=== PATIENT | female | born 1965 | race Caucasian/White ===

== ENCOUNTER 2020-06-26 14:10 | Emergency (ER) | payer MEDICAID ==
[~2020-06-26] VITALS: Ht 157.5 cm; Wt 87.5 kg
[~2020-06-26 14:10] MED LIST: COZAAR25 M1 PO; FORTAMET500 M1 PO; LANTI SQ; PYRIDIUM100 MG PO
[2020-06-26 14:12] VITALS: Ht 157.5 cm; Wt 87.5 kg
[2020-06-26 15:11] LABS: BASOPHIL % 0.4 % (0.2-1.3); PLATELET COUNT 328 x10^3mcL (179-408); RED CELL DISTRIBUTION WIDTH 14.5 % (12.3-17.7)
[2020-06-26 15:52] LABS: CALCIUM 8.7 mg/dL (8.5-10.1); CARBON DIOXIDE 24.4 mmol/L (21-32); CHLORIDE SERUM 100 mmol/L (98-107); CREATININE SERUM 0.9 mg/dL (0.6-1.0); GFR1 > 60 mL/min; GLUCOSE SERUM 389 mg/dL (74-106); POTASSIUM SERUM 4.3 mmol/L (3.5-5.1); SODIUM SERUM 133 mmol/L (136-145)
[2020-06-26 15:58] LABS: ALBUMIN 3.4 g/dL (3.4-5.0); ALKALINE PHOSPHATASE 81 U/L (46-116); ALT/SGPT 26 U/L (14-59); AST/SGOT 21 U/L (15-37); BILIRUBIN TOTAL 0.61 mg/dL (0.20-1.00); LIPASE 130 IU/L (73-393)
[2020-06-26] MEDS ORDERED: CEPHALEXIN500 M1 PO (16:42)
[2020-06-26 17:08] VITALS: BP 112/86
== END 2020-06-26 17:08 | disposition home or self-care (01) ==
LOC: ED 14:10
PROVIDERS: Emergency Medicine
DX: N39.0 Urinary tract infection, site not specified (principal); E11.65 Type 2 diabetes mellitus with hyperglycemia; I10 Essential (primary) hypertension
CPT/HCPCS: 82962; J1885; J2543; J7030